=== PATIENT | male | born 2000 | race Caucasian/White ===

== ENCOUNTER 2024-01-22 13:24 | Emergency (ER) | payer SELFPAY ==
[~2024-01-22] VITALS: Ht 190.5 cm; Wt 79.5 kg
[2024-01-22 13:29] VITALS: BP 125/77
[2024-01-22 13:30] VITALS: BP 115/83
[2024-01-22] MEDS ORDERED: LIDOcaine HCl 1% (Local Anesth.) 20 ML VIAL STI STA (13:32)
[2024-01-22] MEDS ORDERED: STERILE WATER 10 ML/VIAL SDV IM ONE (13:35)
[2024-01-22] MEDS ORDERED: ceFAZolin 1 GM/VIAL SDV IM ONE (13:35)
[2024-01-22] MEDS ORDERED: POVIDONE IODINE 0.5 OZ/BTL TOP ONE (13:35)
[2024-01-22] MEDS ORDERED: Diph, Acellular Pertussis, Tet 0.5 ML/VIAL (Tdap) SDV IM ONE (13:35)
[2024-01-22 13:45] VITALS: BP 126/81
[2024-01-22] MEDS ORDERED: INSULIN LISPRO 100 UNITS/ML ML SC ONE (14:00)
[2024-01-22] MEDS ORDERED: CEPHALEXIN500 M1 PO (14:23)
[2024-01-22] MEDS ORDERED: ACETAMINOPHEN 500 MG TAB PO ONE (14:45)
[2024-01-22 15:04] VITALS: BP 126/81
== END 2024-01-22 15:04 | disposition home or self-care (01) | DRG 605 ==
LOC: ED 13:24
PROC: 0HQDXZZ Repair Right Lower Arm Skin, External Approach (ICD-10-PCS; principal; 2024-01-22)
DX: S51.811A Laceration without foreign body of right forearm, initial encounter (principal); E11.9 Type 2 diabetes mellitus without complications; W26.8XXA Contact with other sharp object(s), not elsewhere classified, initial encounter; Y93.E9 Activity, other interior property and clothing maintenance; Y92.008 Other place in unspecified non-institutional (private) residence as the place of occurrence of the external cause